=== PATIENT | male | born 1930 | race Caucasian/White ===

== ENCOUNTER 2016-12-10 20:54 | Inpatient (IN) | payer MEDICARE ==
[2016-12-10] MEDS ORDERED: SODIUM CHLORIDE 0.9% 1,000 ML IV STA (21:15)
[2016-12-10] MEDS ORDERED: DIPH,PERTUS(ACELL)TETVAC-LF 0.5 ML VIAL IM ONE (21:15)
[2016-12-10] MEDS ORDERED: SODIUM CHLORIDE 0.9% 500 ML IV STA (21:15)
[2016-12-10 21:49] LABS: Basophils # (A) 0.1 k/uL (0-0.2); Basophils % (A) 0 %; CH 30.8; Eosinophils # (A) 0.2 k/uL (0-0.7); Eosinophils % (A) 1 %; HCT 40.3 % (39.0-53.0); HDW 2.19; HGB 13.3 gm/dL (13.0-17.5); Luc # (Auto) 0.13; Luc % (Auto) 1; Lymphocytes # (A) 1.5 k/uL (1.0-4.8); Lymphocytes % (A) 13 %; MCH 31.9 pg (25.0-35.0); MCHC 32.9 g/dL (31.0-37.0); MCV 96.8 fL (80.0-100.0); Mean Platelet Volume 8.7; Monocytes # (A) 0.8 k/uL (0-1.0); Monocytes % (A) 7 %; Neutrophils # (A) 8.8 k/uL (1.3-7.7); Neutrophils % (A) 77 %; RBC 4.16 m/uL (4.30-5.90); RDW 12.6 % (11.5-15.5); WBC 11.4 k/uL (3.8-10.6)
--- NOTE | 2016-12-10 21:49 | XR ---
EXAMINATION TYPE: XR pelvis AP view DATE OF EXAM: 12/10/2016 COMPARISON: NONE HISTORY: Left hip pain TECHNIQUE: Single view FINDINGS: There is osteopenia. I see no displaced fracture. There is some mild deformity of the left femoral head that raises the possibility of a subcapital fracture. There appears to be a subtle horiz ontal impaction line on the lateral aspect of the femoral head. Oblique and lateral view would be pro bably confirmatory. Proximal right femur appears intact. IMPRESSION: I am suspicious of subcapital fracture of the left femur. Oblique and lateral views would be helpful for further evaluation if clinically indicated.
--- NOTE | 2016-12-10 21:52 | XR ---
EXAMINATION TYPE: XR chest 1V portable DATE OF EXAM: 12/10/2016 COMPARISON: 03/22/2016 HISTORY: Chest pain TECHNIQUE: Single frontal view of the chest is obtained. FINDINGS: There is no heart failure. Thoracic aorta is atheromatous. 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 There is blunting of right costophrenic angle. There is increa sed density over the anterior left seventh rib consistent with healing fracture. 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 Descendin g thoracic aortic aneurysm without change. No heart failure. No pneumothorax. No acute rib fracture s een.
[2016-12-10 21:59] LABS: ALT 36 U/L (21-72); AST 32 U/L (17-59); Alkaline Phosphatase 85 U/L (38-126); Anion Gap 10 mmol/L; Blood Urea Nitrogen 37 mg/dL (9-20); Calcium 8.6 mg/dL (8.4-10.2); Carbon Dioxide 23 mmol/L (22-30); Chloride 104 mmol/L (98-107); Creatine Kinase 89 U/L (55-170); Glucose 121 mg/dL (74-99); Non-African American GFR(MDRD) 53 (>60 ml/min/1.73 sqM); Potassium 5.7 mmol/L (3.5-5.1); Sodium 137 mmol/L (137-145); Total Bilirubin 0.6 mg/dL (0.2-1.3); Total Protein 5.9 g/dL (6.3-8.2)
[2016-12-10 22:02] LABS: INR 1.3 (<1.2); Prothrombin Time 12.6 sec (9.0-12.0)
[2016-12-10 22:17] LABS: Appearance,Urine Clear (Clear); Bilirubin,Urine Negative (Negative); Glucose,Urine (UA) Negative (Negative); Ketones,Urine Negative (Negative); Leukocyte Esterase,Urine Negative (Negative); Nitrite,Urine Negative (Negative); PH, Urine 5.5 (5.0-8.0); Protein,Urine Negative (Negative); UA Billing (MACRO vs. MICRO) CHEM; Urobilinogen,Urine <2.0 mg/dL (<2.0)
[2016-12-10 22:18] LABS: Creatine Kinase 86 U/L (55-170)
--- NOTE | 2016-12-10 22:27 | CT ---
EXAM: CT Head Without Intravenous Contrast CLINICAL HISTORY: Reason: trauma TECHNIQUE: Axial computed tomography images of the head/brain without intravenous contrast. CTDI is 57.40 mGy and DLP is 994.40 mGy-cm. This CT exam was performed using one or more of the following dose reduction techniques: automated exposure control, adjustment of the mA and/or kV according to patient size, and/or use of iterative reconstruction technique. COMPARISON: 01/08/16 FINDINGS: Brain: Periventricular white matter hypodensities indicating chronic small vessel ischemic changes. Old lacunar infarct in the right basal ganglia. No hemorrhage. Ventricles: Unremarkable. No ventriculomegaly. Bones/joints: Unremarkable. No acute fracture. Soft tissues: Unremarkable. Vasculature: Atherosclerotic vascular calcifications of the internal carotid arteries and vertebral arteries bilaterally. Sinuses: Unremarkable as visualized. No acute sinusitis. Mastoid air cells: Unremarkable as visualized. No mastoid effusion. Other findings: Generalized atrophy. IMPRESSION: No acute findings. Generalized atrophy and chronic small vessel ischemic changes noted. EXAM: CT Cervical Spine Without Intravenous Contrast CLINICAL HISTORY: Reason: trauma TECHNIQUE: Axial computed tomography images of the cervical spine without intravenous contrast. CTDI is 15.00 mGy and DLP is 293.50 mGy-cm. This CT exam was performed using one or more of the following dose reduction techniques: automated exposure control, adjustment of the mA and/or kV according to patient size, and/or use of iterative reconstruction technique. COMPARISON: No relevant prior studies available. FINDINGS: Vertebrae: 3 mm anterior subluxation of C7 on T1. Advanced bilateral facet degenerative changes noted at C7-T1. No acute fracture. Discs/spinal canal/neural foramina: Degenerative disc calcification noted at C2-3. Disc height loss with posterior disc spur complex seen at C3-4, C4-5, C5-6, and C6-7. Facet arthrosis seen bilaterally at C3-4, C4- 5, C5-6, and C6-7. Facet fusion bilaterally at C2-3. Soft tissues: Unremarkable. Lung apices: Emphysematous changes. IMPRESSION: No acute findings. Multilevel spondylotic changes as above.
[2016-12-10] MEDS ORDERED: MORPHINE SULFATE 4 MG/ML SYRINGE IVP STA (22:28)
[2016-12-10 22:30] LABS: Creatine Kinase MB 1.1 ng/mL (0.0-2.4); Troponin I <0.012 ng/mL (0.000-0.034)
[2016-12-11] MEDS ORDERED: NALOXONE 0.4 MG/ML 1 ML VIAL IV PRN (00:12)
[2016-12-11] MEDS ORDERED: ONDANSETRON 4 MG/2 ML VIAL IVP PRN (00:12)
[2016-12-11] MEDS ORDERED: ACETAMINOPHEN TAB 325 MG TAB PO PRN (00:12)
--- NOTE | 2016-12-11 00:24 | ED ---
General Adult HPI - General Chief complaint: Weakness Stated complaint: Falls Time Seen by Provider: 12/10/16 21:06 Source: patient, family, EMS, RN notes reviewed Mode of arrival: EMS Limitations: physical limitation - History of Present Illness Initial comments: 85-year-old male presents with chief complaint fall. Patient had 2 falls in the past 24 hours. He was found by his daughter this morning after falling in his closet. She does believe he was there all night. He does have beginning signs of dementia. Additional past medical history of hypertension and atrial fibrillation currently on Xarelto. Patient had some difficulty in relating after the initial fall, and this fell again this evening around 6 PM. This was mechanical in nature. He did hit the left side of his head, uncertain if there was loss of consciousness or not. Patient denied any chest pain or shortness of breath preceding the fall. Currently denies fever, denies abdominal pain. Denies nausea vomiting or diarrhea. - Related Data Home Medications Medication Instructions Recorded Confirmed Lisinopril [Prinivil] 10 mg PO DAILY 12/20/14 12/10/16 Simvastatin [Zocor] 40 mg PO DAILY 12/20/14 12/10/16 amLODIPine [Norvasc] 10 mg PO DAILY 12/20/14 12/10/16 Apixaban [Eliquis] 2.5 mg PO DAILY 12/10/16 12/10/16 Metoprolol Tartrate [Lopressor] 25 mg PO DAILY 12/10/16 12/10/16 Previous Rx's Medication Instructions Recorded Aspirin 81 mg PO DAILY #30 chew 01/14/16 Allergies Allergy/AdvReac Type Severity Reaction Status Date / Time vitamin B AdvReac Rash/Hives Uncoded 12/10/16 20:55 Review of Systems ROS Statement: Those systems with pertinent positive or pertinent negative responses have been documented in the HPI. ROS Other: All systems not noted in ROS Statement are negative. Past Medical History Past Medical History: Atrial Fibrillation, Dementia, Hyperlipidemia, Hypertension, Myocardial Infarction ([place]) Last Myocardial Infarction Date:: 20+ years ago History of Any Multi-Drug Resistant Organisms: None Reported Additional Past Surgical History / Comment(s): lobectomy, anuerysm with stent ( abdomen) Past Psychological History: No Psychological Hx Reported Smoking Status: Former smoker Past Alcohol Use History: Daily Past Drug Use History: None Reported - Past Family History Father History Unknown: Yes Family Medical History: Congestive Heart Failure (CHF), Myocardial Infarction ( [place]) Brother(s) History Unknown: Yes Family Medical History: Congestive Heart Failure (CHF), Myocardial Infarction ( [place]) General Exam Limitations: physical limitation General appearance: alert, in no apparent distress Head exam: Present: normocephalic, other (Abrasion and ecchymosis over the left lateral orbit, there is very superficial laceration which is not require repair. ) Eye exam: Present: normal appearance, PERRL, EOMI ENT exam: Present: mucous membranes dry Neck exam: Present: normal inspection, full ROM. Absent: tenderness, meningismus Respiratory exam: Present: normal lung sounds bilaterally. Absent: respiratory distress, wheezes Cardiovascular Exam: Present: regular rate, irregular rhythm GI/Abdominal exam: Present: soft. Absent: distended, tenderness, guarding Extremities exam: Present: normal inspection, normal capillary refill, other ( Patient has left hip pain with rotation. Alignment and length are Normal). Absent: pedal edema Back exam: Present: normal inspection, full ROM Neurological exam: Present: alert, oriented X3, CN II-XII intact. Absent: motor sensory deficit Psychiatric exam: Present: normal affect, normal mood Skin exam: Present: warm, dry. Absent: cyanosis, diaphoretic Course Vital Signs 12/10/16 12/10/16 20:55 22:22 Temperature 98 F Pulse Rate 91 90 Respiratory 18 16 Rate Blood Pressure 133/76 148/65 O2 Sat by Pulse 97 99 Oximetry - Reevaluation(s) Reevaluation #1: 12/11/16 00:19 Patient and family are updated on laboratory results as well as x-ray. EKG Findings - EKG Comments: EKG Findings:: With a ventricular rate of 85, there is a right bundle branch block, QRS duration 124, QTC 461, no signs of ischemia Medical Decision Making - Medical Decision Making 85-year-old male presenting status post fall. Patient did have head trauma with possible loss consciousness. He is on Xarelto. Patient is complaining only of left hip pain. No other injuries noted. CT of the head and C-spine is obtained and negative for acute hemorrhage, negative for fracture subluxation cervical spine. Chest x-ray shows no acute process. X-ray of the pelvis does show a left subcapital femoral neck fracture. This is consistent with his pain and exam. Laboratory studies reveal hemoglobin 13.3, INR 1.3, mild hyperkalemia at 5.7, although her creatinine is elevated at 1.28 related to dehydration over the past 24 hours. Lactic acid is mildly elevated at 2.7. Patient does receive IV fluid bolus and is placed on normal saline. Case is discussed with orthopedic surgery Dr. Sutton. Patient will be admitted to orthopedics with medicine on consult for medical clearance. Diagnosis: Left femoral neck fracture, dehydration, acute kidney injury, lactic acidosis - Lab Data Result diagrams: 12/10/16 21:32 12/10/16 21:32 Lab Results 12/10/16 12/10/16 12/10/16 Range/Units 21:32 21:32 21:32 WBC 11.4 H (3.8-10.6) k/uL RBC 4.16 L (4.30-5.90) m/uL Hgb 13.3 (13.0-17.5) gm/dL Hct 40.3 (39.0-53.0) % MCV 96.8 (80.0-100.0) fL MCH 31.9 (25.0-35.0) pg MCHC 32.9 (31.0-37.0) g/dL RDW 12.6 (11.5-15.5) % Plt Count 143 L (150-450) k/uL Neutrophils % 77 % Lymphocytes % 13 % Monocytes % 7 % Eosinophils % 1 % Basophils % 0 % Neutrophils # 8.8 H (1.3-7.7) k/uL Lymphocytes # 1.5 (1.0-4.8) k/uL Monocytes # 0.8 (0-1.0) k/uL Eosinophils # 0.2 (0-0.7) k/uL Basophils # 0.1 (0-0.2) k/uL PT (9.0-12.0) sec INR (<1.2) APTT (22.0-30.0) sec Sodium 137 (137-145) mmol/L Potassium 5.7 H (3.5-5.1) mmol/L Chloride 104 (98-107) mmol/L Carbon Dioxide 23 (22-30) mmol/L Anion Gap 10 mmol/L BUN 37 H (9-20) mg/dL Creatinine 1.28 H (0.66-1.25) mg/dL Est GFR (MDRD) Af Amer >60 (>60 ml/min/1.73 sqM) Est GFR (MDRD) Non-Af 53 (>60 ml/min/1.73 sqM) Glucose 121 H (74-99) mg/dL Plasma Lactic Acid [place] (0.7-2.0) mmol/L Calcium 8.6 (8.4-10.2) mg/dL Magnesium 2.0 (1.6-2.3) mg/dL Total Bilirubin 0.6 (0.2-1.3) mg/dL AST 32 (17-59) U/L ALT 36 (21-72) U/L Alkaline Phosphatase 85 (38-126) U/L Creatine Kinase 89 (55-170) U/L Total Creatine Kinase 86 (55-170) U/L CK-MB (CK-2) 1.1 (0.0-2.4) ng/mL CK-MB (CK-2) Rel Index 1.3 Troponin I <0.012 (0.000-0.034) ng/mL Total Protein 5.9 L (6.3-8.2) g/dL Albumin 3.3 L (3.5-5.0) g/dL Urine Color Urine Appearance (Clear) Urine pH (5.0-8.0) Ur Specific [place] (1.001-1.035) Urine Protein (Negative) Urine Glucose (UA) (Negative) Urine Ketones (Negative) Urine Blood (Negative) Urine Nitrite (Negative) Urine Bilirubin (Negative) Urine Urobilinogen (<2.0) mg/dL Ur Leukocyte Esterase (Negative) 12/10/16 12/10/16 12/10/16 Range/Units 21:32 21:32 22:03 WBC (3.8-10.6) k/uL RBC (4.30-5.90) m/uL Hgb (13.0-17.5) gm/dL Hct (39.0-53.0) % MCV (80.0-100.0) fL MCH (25.0-35.0) pg MCHC (31.0-37.0) g/dL RDW (11.5-15.5) % Plt Count (150-450) k/uL Neutrophils % % Lymphocytes % % Monocytes % % Eosinophils % % Basophils % % Neutrophils # (1.3-7.7) k/uL Lymphocytes # (1.0-4.8) k/uL Monocytes # (0-1.0) k/uL Eosinophils # (0-0.7) k/uL Basophils # (0-0.2) k/uL PT 12.6 H (9.0-12.0) sec INR 1.3 H (<1.2) APTT 25.0 (22.0-30.0) sec Sodium (137-145) mmol/L Potassium (3.5-5.1) mmol/L Chloride (98-107) mmol/L Carbon Dioxide (22-30) mmol/L Anion Gap mmol/L BUN (9-20) mg/dL Creatinine (0.66-1.25) mg/dL Est GFR (MDRD) Af Amer (>60 ml/min/1.73 sqM) Est GFR (MDRD) Non-Af (>60 ml/min/1.73 sqM) Glucose (74-99) mg/dL Plasma Lactic Acid [place] 2.7 H* (0.7-2.0) mmol/L Calcium (8.4-10.2) mg/dL Magnesium (1.6-2.3) mg/dL Total Bilirubin (0.2-1.3) mg/dL AST (17-59) U/L ALT (21-72) U/L Alkaline Phosphatase (38-126) U/L Creatine Kinase (55-170) U/L Total Creatine Kinase (55-170) U/L CK-MB (CK-2) (0.0-2.4) ng/mL CK-MB (CK-2) Rel Index Troponin I (0.000-0.034) ng/mL Total Protein (6.3-8.2) g/dL Albumin (3.5-5.0) g/dL Urine Color Yellow Urine Appearance Clear (Clear) Urine pH 5.5 (5.0-8.0) Ur Specific [place] 1.020 (1.001-1.035) Urine Protein Negative (Negative) Urine Glucose (UA) Negative (Negative) Urine Ketones Negative (Negative) Urine Blood Negative (Negative) Urine Nitrite Negative (Negative) Urine Bilirubin Negative (Negative) Urine Urobilinogen <2.0 (<2.0) mg/dL Ur Leukocyte Esterase Negative (Negative) Critical Care Time Critical Care Time: Yes Total Critical Care Time: 35 (Vital with head injury on Xarelto) Disposition Clinical Impression: Fracture of femoral neck, left, Acute renal failure Disposition: ADMITTED IP TO THIS [facility] Condition: Stable Referrals: Salazar Hsu MD [Primary Care Provider] - 1-2 days Decision to Admit Reason: Admit from EC Decision Date: 12/10/16 Decision Time: 23:30
[2016-12-11] MEDS: SODIUM CHLORIDE 0.9% 1,000 ML IV SCH (01:33)
[2016-12-11] MEDS: MORPHINE SULFATE 4 MG/ML SYRINGE IV PRN ×3 (01:33→20:56)
--- NOTE | 2016-12-11 10:19 | P.HPOR ---
History of Present Illness H&P Date: 12/11/16 Chief Complaint: Left hip pain Patient presented to the emergency department last evening 12/10/2016 with left hip pain that developed after a fall. He is a pleasant 85-year-old male was seen at bedside this morning. He states he lives alone at [facility]. He had stumbled and fell to his left side. He has had pain in the left hip and thigh area with lifting his left leg. He denies any radicular symptoms including numbness, tingling or overt weakness. He has had no loss of bowel or bladder control. He has no other complaints. Review of Systems All systems: negative Constitutional: Denies chills, Denies fever Eyes: denies blurred vision, denies pain Ears, nose, mouth and throat: Denies headache, Denies sore throat Cardiovascular: Denies chest pain, Denies shortness of breath Respiratory: Denies cough Gastrointestinal: Denies abdominal pain, Denies diarrhea, Denies nausea, Denies vomiting Musculoskeletal: Denies myalgias Integumentary: Denies pruritus, Denies rash Neurological: Denies numbness, Denies weakness Psychiatric: Denies anxiety, Denies depression Endocrine: Denies fatigue, Denies weight change Past Medical History Past Medical History: Atrial Fibrillation, Asthma, Heart Failure, COPD, CVA/TIA , Dementia, GERD/Reflux, Hyperlipidemia, Hypertension, Myocardial Infarction ([place] ), Osteoarthritis ([place]), Pneumonia, Prostate Disorder Additional Past Medical History / Comment(s): Falls, abdominal aortic aneurysm with sleeve, R lobectomy (1) for benign mass, TIA, chronic CHF, lumbar spine compression fracture, BPH, sinus problems, constipation with last BM 2-3 days ago, R leg fracture as a child. Last Myocardial Infarction Date:: 1987 about History of Any Multi-Drug Resistant Organisms: None Reported Past Surgical History: Heart Catheterization With Stent Additional Past Surgical History / Comment(s): R lung lobectomy (1/), abdominal aortic aneurysm surgery x 2 and has a sleeve, PCI with stent, colonoscopies with benign polypectomies, R eye cataract removal. Past Anesthesia/Blood Transfusion Reactions: No Reported Reaction Date of Last Stent Placement:: 1987? Smoking Status: Former smoker - Past Family History Father History Unknown: Yes Family Medical History: Congestive Heart Failure (CHF), Myocardial Infarction ( [place]) Brother(s) History Unknown: Yes Family Medical History: Congestive Heart Failure (CHF), Myocardial Infarction ( [place]) Medications and Allergies Home Medications Medication Instructions Recorded Confirmed Type Lisinopril [Prinivil] 10 mg PO DAILY 12/20/14 12/10/16 History Simvastatin [Zocor] 40 mg PO DAILY 12/20/14 12/10/16 History amLODIPine [Norvasc] 10 mg PO DAILY 12/20/14 12/10/16 History Apixaban [Eliquis] 2.5 mg PO DAILY 12/10/16 12/10/16 History Metoprolol Tartrate [Lopressor] 25 mg PO DAILY 12/10/16 12/10/16 History Allergies Allergy/AdvReac Type Severity Reaction Status Date / Time vitamin B AdvReac Rash/Hives Uncoded 12/10/16 20:55 Physical Examination Inspection left lower extremity is benign. There is no open wounds or lacerations. There is no erythema or edema. Range of motion of the left hip is not tested due to possible fracture. Neurovascular status intact with the left lower extremity with motor and sensation. Calf is soft and nontender. 2+ dorsalis pedis pulses are present as well as less than 2 second cap refill. Results One view x-ray of the pelvis shows questionable left subcapital femoral neck fracture. Osteoarthritis is seen as expected given age. No other fractures or dislocations. - Labs Labs: Abnormal Lab Results - Last 24 Hours (Table) 12/10/16 12/10/16 12/10/16 Range/Units 21:32 21:32 21:32 WBC 11.4 H (3.8-10.6) k/uL RBC 4.16 L (4.30-5.90) m/uL Plt Count 143 L (150-450) k/uL Neutrophils # 8.8 H (1.3-7.7) k/uL PT (9.0-12.0) sec INR (<1.2) Potassium 5.7 H (3.5-5.1) mmol/L BUN 37 H (9-20) mg/dL Creatinine 1.28 H (0.66-1.25) mg/dL Glucose 121 H (74-99) mg/dL Plasma Lactic Acid [place] 2.7 H* (0.7-2.0) mmol/L Total Protein 5.9 L (6.3-8.2) g/dL Albumin 3.3 L (3.5-5.0) g/dL 12/10/16 Range/Units 21:32 WBC (3.8-10.6) k/uL RBC (4.30-5.90) m/uL Plt Count (150-450) k/uL Neutrophils # (1.3-7.7) k/uL PT 12.6 H (9.0-12.0) sec INR 1.3 H (<1.2) Potassium (3.5-5.1) mmol/L BUN (9-20) mg/dL Creatinine (0.66-1.25) mg/dL Glucose (74-99) mg/dL Plasma Lactic Acid [place] (0.7-2.0) mmol/L Total Protein (6.3-8.2) g/dL Albumin (3.5-5.0) g/dL H & H 12/10/16 Range/Units 21:32 Hgb 13.3 (13.0-17.5) gm/dL Hct 40.3 (39.0-53.0) % Coagulation 12/10/16 Range/Units 21:32 INR 1.3 H (<1.2) Result Diagrams: 12/10/16 21:32 12/10/16 21:32 Assessment and Plan (1) Fracture of femoral neck, left Narrative/Plan: We will obtain a CT of the left hip to further confirm possible left femoral neck fracture. Should the CT confirm fracture we'll likely proceed with surgical intervention in the next day or so pending medical clearance. Status: Acute Time with Patient: Less than 30
--- NOTE | 2016-12-11 12:09 | CT ---
EXAMINATION TYPE: CT hip LT wo con DATE OF EXAM: 12/11/2016 COMPARISON: NONE HISTORY: Recent fall, Lt hip pain CT DLP: 232.3 mGycm Automated exposure control for dose reduction was used. Axial images 3 mm thick sections. Three-D reconstructed separately on the ME[employer] Real-Time computer by the tech nologist. Sagittal and Coronal reconstructed images were obtained. FINDINGS: There is a subcapital fracture left hip.. This appears to have impaction of the femoral neck of the f emoral head. Femoral head articulates with the acetabulum. Vascular calcification is noted. Muscle de nsity appears normal. IMPRESSION: 1. IMPACTED SUBCAPITAL FRACTURE LEFT FEMORAL NECK. 2. REPORT WAS CALLED TO THE FLOOR BY DR. BUCHANAN BY TELEPHONE AT THE TIME OF INTERPRETATION.
[2016-12-11] MEDS: ENOXAPARIN 60 MG/0.6 ML SYRINGE SQ SCH ×2 (12:43→20:56)
--- NOTE | 2016-12-11 13:06 | P.CONS ---
History of Present Illness - Reason for Consult Consult date: 12/11/16 Medical clearance - Chief Complaint Fall - History of Present Illness This is a 85-year-old gentleman who currently lives in [facility] facility was going to the hospital after sustaining multiple falls in the recent times. Patient was noted to have a traumatic injury to the left orbit laterally. Patient was also noted to have some pain in his pelvis appears that the patient is a left femoral neck fracture Patient is currently on anticoagulation for atrial fibrillation for secondary prevention of strokes At this time patient states that his main complaint is pain in his left lower extremity. Over the last few months patient states that his balance has worsened and hence has had sustained multiple falls ekg do show the patient to be in atrial fibrillation. last ejection fraction is 35-40%. Review of Systems All systems: negative (Noted in HPI) Past Medical History Past Medical History: Atrial Fibrillation, Asthma, Heart Failure, COPD, CVA/TIA , Dementia, GERD/Reflux, Hyperlipidemia, Hypertension, Myocardial Infarction ([place] ), Osteoarthritis (OA), Pneumonia, Prostate Disorder Additional Past Medical History / Comment(s): Falls, abdominal aortic aneurysm with sleeve, R lobectomy (1/) for benign mass, TIA, chronic CHF, lumbar spine compression fracture, BPH, sinus problems, constipation with last BM 2-3 days ago, R leg fracture as a child. Last Myocardial Infarction Date:: 1987 about History of Any Multi-Drug Resistant Organisms: None Reported Past Surgical History: Heart Catheterization With Stent Additional Past Surgical History / Comment(s): R lung lobectomy (04/23), abdominal aortic aneurysm surgery x 2 and has a sleeve, PCI with stent, colonoscopies with benign polypectomies, R eye cataract removal. Past Anesthesia/Blood Transfusion Reactions: No Reported Reaction Date of Last Stent Placement:: 1987? Smoking Status: Former smoker - Past Family History Father History Unknown: Yes Family Medical History: Congestive Heart Failure (CHF), Myocardial Infarction ( [place]) Brother(s) History Unknown: Yes Family Medical History: Congestive Heart Failure (CHF), Myocardial Infarction ( [place]) Medications and Allergies Home Medications Medication Instructions Recorded Confirmed Type Lisinopril [Prinivil] 10 mg PO DAILY 12/20/14 12/10/16 History Simvastatin [Zocor] 40 mg PO DAILY 12/20/14 12/10/16 History amLODIPine [Norvasc] 10 mg PO DAILY 12/20/14 12/10/16 History Apixaban [Eliquis] 2.5 mg PO DAILY 12/10/16 12/10/16 History Metoprolol Tartrate [Lopressor] 25 mg PO DAILY 12/10/16 12/10/16 History Allergies Allergy/AdvReac Type Severity Reaction Status Date / Time vitamin B AdvReac Rash/Hives Uncoded 12/10/16 20:55 Physical Exam Vitals: Vital Signs Temp Pulse Pulse Resp BP BP Pulse Ox 12/11/16 08:00 110 H 12/11/16 07:00 98.2 F 111 H 18 112/75 92 L 12/11/16 01:32 98.0 F 102 H 17 138/82 98 12/11/16 00:52 97.6 F 87 16 126/58 98 12/10/16 22:22 90 16 148/65 99 12/10/16 20:55 98 F 91 18 133/76 97 Intake and Output 12/10/16 12/11/16 12/11/16 22:59 06:59 14:59 Intake Total 300 Balance 300 Intake: Intake, IV Titration 300 Amount Sodium Chloride 0.9% 1, 300 000 ml @ 75 mls/hr IV . [id number] [facility] Rx#:[id number] Other: Voiding Method Urinal Weight 61.235 kg Gen. appearance alert oriented times it does not appear to be in distress neck is supple. Heart S1-S2 heard no murmurs appreciated appears to be irregular From lungs diminished breath sounds no rhonchi wheezing or crackles Abdomen soft nontender organomegaly There is tenderness palpated on any motion of pelvis left lower extremity reproducibility of tenderness with the slight movement Neuro no focal deficits apart from the pain Results CBC & Chem 7: 12/10/16 21:32 12/10/16 21:32 Labs: Abnormal Lab Results - Last 24 Hours (Table) 12/10/16 12/10/16 12/10/16 Range/Units 21:32 21:32 21:32 WBC 11.4 H (3.8-10.6) k/uL RBC 4.16 L (4.30-5.90) m/uL Plt Count 143 L (150-450) k/uL Neutrophils # 8.8 H (1.3-7.7) k/uL PT (9.0-12.0) sec INR (<1.2) Potassium 5.7 H (3.5-5.1) mmol/L BUN 37 H (9-20) mg/dL Creatinine 1.28 H (0.66-1.25) mg/dL Glucose 121 H (74-99) mg/dL Plasma Lactic Acid [place] 2.7 H* (0.7-2.0) mmol/L Total Protein 5.9 L (6.3-8.2) g/dL Albumin 3.3 L (3.5-5.0) g/dL 12/10/16 Range/Units 21:32 WBC (3.8-10.6) k/uL RBC (4.30-5.90) m/uL Plt Count (150-450) k/uL Neutrophils # (1.3-7.7) k/uL PT 12.6 H (9.0-12.0) sec INR 1.3 H (<1.2) Potassium (3.5-5.1) mmol/L BUN (9-20) mg/dL Creatinine (0.66-1.25) mg/dL Glucose (74-99) mg/dL Plasma Lactic Acid [place] (0.7-2.0) mmol/L Total Protein (6.3-8.2) g/dL Albumin (3.5-5.0) g/dL Assessment and Plan Plan: #1 fall causing a left femoral neck fracture #2 chronic atrial fibrillation #3 history of essential hypertension #4 dyslipidemia 4 lactic acidosis #Dehydration Plan Patient has sustained multiple falls over the last few months. Long-term anticoagulation is likely more risky in this patient population Did discuss this with the patient patient should be on aspirin 325 mg however if patient is to undergo an orthopedic surgery patient should have anticoagulation for at least 4 weeks thereafter should be switched over to aspirin 325 this is for DVT prevention Due to the emergent nature of the surgery no further workup is needed patient does understand the risks of the surgery in regards to cardiovascular aspect patient will be clear given he understands the risks and the nature of his condition.
[2016-12-12] MEDS: SODIUM CHLORIDE 0.9% 1,000 ML IV SCH ×3 (03:52→20:56)
[2016-12-12 07:38] LABS: Basophils % (A) 0 %; CH 30.9; CHCM 30.9; Eosinophils # (A) 0.8 k/uL (0-0.7); Eosinophils % (A) 8 %; HCT 37.7 % (39.0-53.0); HDW 2.12; HGB 11.9 gm/dL (13.0-17.5); Hypochromasia Slight; Luc # (Auto) 0.16; Luc % (Auto) 1; Lymphocytes # (A) 1.8 k/uL (1.0-4.8); Lymphocytes % (A) 17 %; MCH 31.7 pg (25.0-35.0); MCHC 31.6 g/dL (31.0-37.0); MCV 100.4 fL (80.0-100.0); Mean Platelet Volume 8.7; Monocytes # (A) 0.8 k/uL (0-1.0); Monocytes % (A) 8 %; Neutrophils # (A) 7.2 k/uL (1.3-7.7); Neutrophils % (A) 66 %; RBC 3.76 m/uL (4.30-5.90); RDW 12.8 % (11.5-15.5); WBC 10.8 k/uL (3.8-10.6); WBC (Perox) 11.31
[2016-12-12 08:03] LABS: ALT 30 U/L (21-72); AST 28 U/L (17-59); Alkaline Phosphatase 78 U/L (38-126); Anion Gap 6 mmol/L; Blood Urea Nitrogen 29 mg/dL (9-20); Calcium 8.2 mg/dL (8.4-10.2); Carbon Dioxide 22 mmol/L (22-30); Chloride 111 mmol/L (98-107); Glucose 77 mg/dL (74-99); Non-African American GFR(MDRD) 57 (>60 ml/min/1.73 sqM); Potassium 5.1 mmol/L (3.5-5.1); Sodium 139 mmol/L (137-145); Total Bilirubin 0.8 mg/dL (0.2-1.3); Total Protein 5.2 g/dL (6.3-8.2)
[2016-12-12] MEDS: METOPROLOL TARTRATE 25 MG TAB PO SCH (09:08)
[2016-12-12] MEDS: amLODIPine 10 MG TAB PO SCH (09:10)
[2016-12-12] MEDS: ENOXAPARIN 60 MG/0.6 ML SYRINGE SQ SCH ×2 (09:10→20:55)
--- NOTE | 2016-12-12 12:16 | P.PN ---
Subjective The Patient in Good Humor with Family at Bedside. Complaining of Left Hip Pain. Patient Has Been Cleared per Hospitalist for Hip Surgery Objective - Vital Signs Vital signs: Vital Signs Temp 97.2 F L 12/12/16 08:00 Pulse 68 12/12/16 08:00 Resp 18 12/12/16 08:00 BP 138/65 12/12/16 08:00 Pulse Ox 95 12/12/16 08:00 Intake & Output 12/11/16 12/12/16 12/12/16 18:59 06:59 18:59 Intake Total 600 1025 Output Total 600 Balance 600 425 Intake: IV 600 225 Sodium Chloride 0.9% 1, 600 225 000 ml @ 75 mls/hr IV . [id number] [facility] Rx#:[id number] Intake, IV Titration 600 Amount Sodium Chloride 0.9% 1, 600 000 ml @ 75 mls/hr IV . [id number] [facility] Rx#:[id number] Oral 200 Output: Urine 600 Other: Voiding Method Urinal Urinal Incontinent # Voids 2 - Constitutional General appearance: Present: mild distress - EENT Eyes: Present: PERRLA Ears: bilateral: normal - Neck Neck: Present: normal ROM - Respiratory Respiratory: bilateral: CTA - Cardiovascular Rhythm: irregularly irregular - Gastrointestinal General gastrointestinal: Present: soft - Neurologic Neurologic: Present: CNII-XII intact - Musculoskeletal Musculoskeletal: Present: generalized weakness - Psychiatric Psychiatric: Present: A&O x's 3, appropriate affect, intact judgment & insight - Labs CBC & Chem 7: 12/12/16 06:58 12/12/16 06:58 Labs: Abnormal Lab Results - Last 24 Hours (Table) 12/12/16 12/12/16 Range/Units 06:58 06:58 WBC 10.8 H (3.8-10.6) k/uL RBC 3.76 L (4.30-5.90) m/uL Hgb 11.9 L (13.0-17.5) gm/dL Hct 37.7 L (39.0-53.0) % MCV 100.4 H (80.0-100.0) fL Plt Count 141 L (150-450) k/uL Eosinophils # 0.8 H (0-0.7) k/uL Chloride 111 H (98-107) mmol/L BUN 29 H (9-20) mg/dL Calcium 8.2 L (8.4-10.2) mg/dL Total Protein 5.2 L (6.3-8.2) g/dL Albumin 2.6 L (3.5-5.0) g/dL Assessment and Plan Plan: Assessment Fall resulting in left femoral neck fracture Chronic atrial fibrillation History of coronary disease with stents Chronic congestive heart failure ejection fraction 35-40% History of hypertension Dyslipidemia dehydration Plan Surgical repair of left hip today
[2016-12-12] MEDS: MORPHINE SULFATE 4 MG/ML SYRINGE IV PRN (12:33)
[2016-12-12 14:12] VITALS: BMI 21.1
[2016-12-12] MEDS ORDERED: IV FLUID CONTINUATION 1,000 ML IV ONE (15:59)
[2016-12-12] MEDS ORDERED: MAGNESIUM HYDROXIDE 2,400 MG/10 ML CUP PO PRN (16:41)
[2016-12-12] MEDS ORDERED: TEMAZEPAM 15 MG CAP PO PRN (16:41)
[2016-12-12] MEDS ORDERED: HYDROmorphone 1 MG/ML 1 ML SYRINGE IVP PRN ×3 (16:41)
[2016-12-12] MEDS ORDERED: hydrOXYzine PAMOATE 25 MG CAP PO PRN (16:41)
[2016-12-12] MEDS ORDERED: DIAZEPAM 5 MG TAB PO PRN (16:41)
[2016-12-12] MEDS ORDERED: KETAMINE 10 MG/ML 20 ML VIAL ONE (16:50)
[2016-12-12] MEDS ORDERED: MIDAZOLAM 2 MG/2 ML VIAL ONE (16:50)
[2016-12-12] MEDS ORDERED: PHENYLEPHRINE-0.9% NACL SYG 1 MG/10 ML SYRINGE ONE (16:50)
[2016-12-12] MEDS: ceFAZolin 2 GM in SODIUM CHLORIDE 0.9% 100 ML IVPB SCH (17:14)
[2016-12-12] MEDS ORDERED: ceFAZolin 1,000 MG in SODIUM CHLORIDE 0.9% 1,000 ML IRRIGATION ONE (17:34)
--- NOTE | 2016-12-12 18:29 | XR ---
EXAMINATION TYPE: XR Hip Limited LT DATE OF EXAM: 12/12/2016 CLINICAL HISTORY: Left hip pain and osteoarthritis. TECHNIQUE: Single AP portable view of left hip is obtained immediately postoperatively. COMPARISON: None. FINDINGS: Three cephalomedullary screws from left hip arthroplasty is seen and appears satisfactory i n alignment and position. There is evidence of recent surgery with subcutaneous gas noted laterally. 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 IMPRESSION: Metallic hardware from left hip arthroplasty is satisfactory in position.
--- NOTE | 2016-12-12 19:30 | FL ---
EXAMINATION TYPE: FL guidance operating room DATE OF EXAM: 12/12/2016 CLINICAL HISTORY: ORIF left hip. TECHNIQUE: Fluoroscopy. COMPARISON: None. FINDINGS/IMPRESSION: Fluoroscopic guidance was provided during procedure performed by Dr. Sutton. A total of 51 seconds of fluoroscopic time was utilized during the procedure and 2 spot images was acq uired.
[2016-12-12 19:34] LABS: Basophils # (A) 0.1 k/uL (0-0.2); Basophils % (A) 1 %; CH 31.6; Eosinophils # (A) 0.7 k/uL (0-0.7); Eosinophils % (A) 6 %; HCT 40.5 % (39.0-53.0); HDW 2.15; HGB 12.5 gm/dL (13.0-17.5); Hypochromasia Slight; Luc # (Auto) 0.19; Luc % (Auto) 2; Lymphocytes # (A) 1.7 k/uL (1.0-4.8); Lymphocytes % (A) 14 %; MCH 31.7 pg (25.0-35.0); MCHC 30.9 g/dL (31.0-37.0); MCV 102.7 fL (80.0-100.0); Macrocytosis Slight; Mean Platelet Volume 8.8; Monocytes # (A) 1.1 k/uL (0-1.0); Monocytes % (A) 9 %; Neutrophils % (A) 69 %; RBC 3.95 m/uL (4.30-5.90); RDW 13.4 % (11.5-15.5); WBC 11.7 k/uL (3.8-10.6); WBC (Perox) 12.62
--- NOTE | 2016-12-12 19:42 | XR ---
EXAMINATION TYPE: XR Hip Complete LT DATE OF EXAM: 12/12/2016 CLINICAL HISTORY: Left hip pain and osteoarthritis. TECHNIQUE: 2 paper films from intraoperative ORIF of the left hip were obtained. COMPARISON: None. FINDINGS/ IMPRESSION: Metallic hardware from left hip arthroplasty with three cephalomedullary fixation screws are seen and appears satisfactory in alignment and position.
[2016-12-12] MEDS: LACTATED RINGERS 1,000 ML IV SCH (20:56)
[2016-12-12] MEDS: ASPIRIN 325 MG TAB PO SCH (21:01)
[2016-12-12] MEDS: SENNOSIDES-DOCUSATE SODIUM 1 EACH TAB PO SCH (21:01)
[2016-12-12] MEDS: HYDROcodone/APAP 5-325MG 1 EACH TAB PO PRN (23:59)
[2016-12-13] MEDS: HYDROcodone/APAP 5-325MG 1 EACH TAB PO PRN ×3 (05:04→16:04)
[2016-12-13] MEDS: SODIUM CHLORIDE 0.9% 1,000 ML IV SCH ×2 (06:08→21:27)
[2016-12-13] MEDS: LACTATED RINGERS 1,000 ML IV SCH ×2 (06:09→21:35)
--- NOTE | 2016-12-13 09:14 | P.PN ---
Subjective Principal diagnosis: Left Hip Fracture Patient is pleasant 78-year-old male seen at bedside this morning. He is postop day 1 from closed reduction internal fixation of a left subcapital impacted femoral neck fracture. He's doing well with no new complaints. He has pain at surgical site as expected. His pain is controlled. He denies numbness or tingling. He denies calf pain, fever, chills, chest pain or shortness of breath. Objective - Vital Signs Vital signs: Vital Signs Temp 97.6 F 12/13/16 07:24 Pulse 84 12/13/16 07:24 Resp 18 12/13/16 07:24 BP 102/63 12/13/16 07:24 Pulse Ox 97 12/13/16 07:24 Intake & Output 12/12/16 12/13/16 12/13/16 18:59 06:59 18:59 Intake Total 896 1550 Output Total 1475 300 Balance -579 1250 Weight 61.235 kg Intake: IV 896 900 Sodium Chloride 0.9% 1, 600 900 000 ml @ 75 mls/hr IV . [id number] [facility] Rx#:[id number] Oral 0 650 Output: Urine 1450 300 Uretheral (Fields) 300 Estimated Blood Loss 25 Other: Voiding Method Urinal Indwelling Catheter Incontinent # Voids 2 - Exam Inspection of the left lower extremity reveals a benign surgical wound. There is no active bleeding or drainage. Neurovascular status intact with motor and sensation at the left lower extremity. Calf is soft and nontender. 2+ dorsalis pedis pulse and less than 2 second cap refill is present. - Constitutional General appearance: Present: no acute distress - Psychiatric Psychiatric: Present: A&O x's 3, appropriate affect, intact judgment & insight - Labs CBC & Chem 7: 12/12/16 19:07 12/12/16 06:58 Labs: Abnormal Lab Results - Last 24 Hours (Table) 12/12/16 Range/Units 19:07 WBC 11.7 H (3.8-10.6) k/uL RBC 3.95 L (4.30-5.90) m/uL Hgb 12.5 L (13.0-17.5) gm/dL MCV 102.7 H (80.0-100.0) fL MCHC 30.9 L (31.0-37.0) g/dL Plt Count 137 L (150-450) k/uL Neutrophils # 8.0 H (1.3-7.7) k/uL Monocytes # 1.1 H (0-1.0) k/uL Assessment and Plan (1) Fracture of femoral neck, left Narrative/Plan: He'll continue with routine postop orthopedic protocol including pain management , wound care, physical therapy, DVT prophylaxis and medical management. Expect that he'll transfer to extended care facility in the next 1-2 days.. Status: Acute Time with Patient: Less than 30
[2016-12-13] MEDS: ENOXAPARIN 60 MG/0.6 ML SYRINGE SQ SCH ×2 (10:08→21:24)
[2016-12-13] MEDS: ASPIRIN 325 MG TAB PO SCH ×2 (10:08→21:23)
[2016-12-13] MEDS: METOPROLOL TARTRATE 25 MG TAB PO SCH (10:08)
[2016-12-13] MEDS: amLODIPine 10 MG TAB PO SCH (10:08)
[2016-12-13] MEDS: ceFAZolin 2 GM in SODIUM CHLORIDE 0.9% 100 ML IVPB SCH (10:11)
[2016-12-13] MEDS: MULTIVITAMINS, THERA 1 EACH TAB PO SCH (11:25)
--- NOTE | 2016-12-13 16:39 | OP ---
DATE OF PROCEDURE: 12/12/2016 PREOPERATIVE DIAGNOSIS: Left non-displaced valgus impacted femoral neck fracture. POSTOPERATIVE DIAGNOSIS: Left non-displaced valgus impacted femoral neck fracture. SURGERY: Closed reduction, percutaneous screw fixation for left non-displaced femoral neck fracture. SURGEON: Zion Sutton M.D. ROAD BUILDER: Tyler FINE ANESTHESIA: Spinal with sedation. ESTIMATED BLOOD LOSS: 25 mL DRAINS: None. COMPLICATIONS: None apparent. DISPOSITION: Post-Anesthesia Care Unit. INDICATIONS: Mr. Gallardo is a very pleasant 85-year-old male who lives independently. He fell in his house on the evening of 12/11/2016. He was brought to [facility] via ambulance. Workup including x-rays revealed a non- displaced left subcapital femoral neck fracture. He was admitted to pr. His primary care doctor, Dr. Hsu, was consulted for preoperative clearance. He has been cleared for surgery. He is an independent ambulator. He lives by himself. The decision was made to go forward with closed reduction, percutaneous screw fixation, for the femoral neck fracture. The risks of the procedure were discussed with him and his daughters in detail. These risks include but are not limited to risk of infection, nerve damage, bleeding, pain and a small risk of deep vein thrombosis which could lead to fatal pulmonary embolism. Further risks include possibility for failure of the fracture to heal, loosening of the hardware, both of which could require revision operation. All of Mr. Gallardo's and his daughters' questions were answered to their satisfaction. Appropriate informed consent was obtained. DESCRIPTION OF THE PROCEDURE: The patient was identified in the preoperative holding area. Surgical site was marked by both the patient and myself. He was given 2 grams of Ancef IV for prophylactic purposes. He was then transferred to the operative suite. He was placed supine on the operating room table. Spinal anesthetic was then administered and dosed per the anesthesia department without apparent complications. The patient was then placed on the fracture table, well padded in preparation for surgery. Great care was taken. Fluoroscopy was then brought in. The fracture remained non-displaced. Good fluoroscopic views were able to be obtained preoperatively. The patient's left lower extremity was then prepped and draped in the usual sterile fashion. Standard surgical pause was then undertaken to ensure that we were operating on the correct site and that appropriate preoperative antibiotics had been given. All staff in the room were in agreement and we proceeded. Fluoroscopy was brought in. A pin was placed on the anterior skin in line with the inferior screw. This allowed me to localize my incision on the lateral aspect of the thigh. An approximately 2 to 3 cm incision was then made. Dissection was carried sharply to the tensor facia. The tensor fascia was incised in line with the skin incision. The inferior pin was then placed under fluoroscopic guidance in the center of the femoral head along the inferior femoral neck. It was placed deep into the femoral head. Again this pin position was placed with fluoroscopic imaging. I then placed 2 more parallel pins, one superior and anterior along the anterior cortex of the femoral neck, and one superior and posterior along the posterior superior femoral neck. There were both also placed deep into the femoral head. The position was confirmed with fluoroscopic assistance. I then placed Elaine Magnafix 7.0 mm partially threaded cannulated screws with washers over the guide pins. All 3 of the screws had excellent purchase in bone. The pins were then removed. Final fluoroscopic images were taken. All 3 pins were parallel. They had a nice spread and were placed deep in the femoral head with excellent purchase in bone. This was confirmed on both A/P and lateral views. At this point in time, no further work was deemed necessary. The wound was thoroughly irrigated with sterile saline solution with antibiotic added. The tensor fascia was closed with #1 Vicryl in interrupted suture. The subcutaneous tissue was closed with 2-0 Vicryl interrupted suture and the skin was closed with stainless steel kang. Sterile compressive dressing was then applied. All sponge and needle counts were deemed correct prior to closure. The patient tolerated the procedure without apparent complication. He was transferred to the recovery room in stable condition. TRANG
--- NOTE | 2016-12-13 18:59 | P.PN ---
Subjective Patient resting comfortably in bed states pain is controlled. Patient is postop repair of left femoral neck fracture Objective - Vital Signs Vital signs: Vital Signs Temp 98.4 F 12/13/16 14:21 Pulse 78 12/13/16 16:18 Resp 18 12/13/16 16:18 BP 124/78 12/13/16 16:18 Pulse Ox 94 L 12/13/16 14:21 Intake & Output 12/12/16 12/13/16 12/13/16 18:59 06:59 18:59 Intake Total 896 1550 480 Output Total 1475 300 240 Balance -579 1250 240 Weight 61.235 kg 61.235 kg Intake: IV 896 900 Sodium Chloride 0.9% 1, 600 900 000 ml @ 75 mls/hr IV . [id number] [facility] Rx#:[id number] Oral 0 650 480 Output: Urine 1450 300 240 Uretheral (Fields) 300 Estimated Blood Loss 25 Other: Voiding Method Urinal Indwelling Catheter Indwelling Catheter Incontinent # Voids 2 2 # Bowel Movements 0 - Constitutional General appearance: Present: mild distress - EENT Eyes: Present: PERRLA Ears: bilateral: normal - Neck Neck: Present: normal ROM - Respiratory Respiratory: bilateral: CTA - Cardiovascular Rhythm: irregularly irregular - Gastrointestinal General gastrointestinal: Present: soft - Integumentary Integumentary: Present: normal - Neurologic Neurologic: Present: CNII-XII intact - Musculoskeletal Musculoskeletal: Present: generalized weakness - Psychiatric Psychiatric: Present: A&O x's 3, appropriate affect, intact judgment & insight - Labs CBC & Chem 7: 12/12/16 19:07 12/12/16 06:58 Labs: Abnormal Lab Results - Last 24 Hours (Table) 12/12/16 Range/Units 19:07 WBC 11.7 H (3.8-10.6) k/uL RBC 3.95 L (4.30-5.90) m/uL Hgb 12.5 L (13.0-17.5) gm/dL MCV 102.7 H (80.0-100.0) fL MCHC 30.9 L (31.0-37.0) g/dL Plt Count 137 L (150-450) k/uL Neutrophils # 8.0 H (1.3-7.7) k/uL Monocytes # 1.1 H (0-1.0) k/uL Assessment and Plan Plan: Assessment Postop repair of left femoral neck fracture Chronic atrial fibrillation History of hypertension Chronic congestive heart failure ejection fraction 35-40% Coronary disease history stent Hyperlipidemia Plan Continue to monitor patient condition stable at this time
[2016-12-13 19:22] VITALS: RESP 16
[2016-12-13] MEDS: SENNOSIDES-DOCUSATE SODIUM 1 EACH TAB PO SCH (21:23)
[2016-12-14] MEDS: HYDROcodone/APAP 5-325MG 1 EACH TAB PO PRN ×2 (04:59→11:35)
[2016-12-14 07:40] LABS: Basophils % (A) 0 %; CH 31.9; CHCM 31.1; Eosinophils % (A) 9 %; HCT 34.4 % (39.0-53.0); HDW 2.24; HGB 10.6 gm/dL (13.0-17.5); Hypochromasia Slight; Luc # (Auto) 0.16; Luc % (Auto) 2; Lymphocytes # (A) 1.6 k/uL (1.0-4.8); Lymphocytes % (A) 15 %; MCH 31.9 pg (25.0-35.0); MCHC 30.9 g/dL (31.0-37.0); MCV 103.3 fL (80.0-100.0); Macrocytosis Slight; Monocytes # (A) 0.7 k/uL (0-1.0); Monocytes % (A) 7 %; Neutrophils # (A) 6.8 k/uL (1.3-7.7); Neutrophils % (A) 67 %; RBC 3.33 m/uL (4.30-5.90); RDW 13.7 % (11.5-15.5); WBC 10.3 k/uL (3.8-10.6); WBC (Perox) 11.07
[2016-12-14] MEDS: MULTIVITAMINS, THERA 1 EACH TAB PO SCH (08:00)
[2016-12-14] MEDS: METOPROLOL TARTRATE 25 MG TAB PO SCH (08:00)
[2016-12-14] MEDS: ASPIRIN 325 MG TAB PO SCH ×2 (08:00→20:01)
[2016-12-14] MEDS: amLODIPine 10 MG TAB PO SCH (08:00)
[2016-12-14] MEDS: ENOXAPARIN 60 MG/0.6 ML SYRINGE SQ SCH ×2 (08:00→20:01)
--- NOTE | 2016-12-14 10:08 | P.PN ---
Subjective Principal diagnosis: Left Hip Fracture Patient is pleasant 78-year-old male seen at bedside this morning. He is postop day 2 from closed reduction internal fixation of a left subcapital impacted femoral neck fracture. He's doing well with no new complaints. He has pain at surgical site as expected. His pain is controlled. He denies numbness or tingling. He denies calf pain, fever, chills, chest pain or shortness of breath. Objective - Vital Signs Vital signs: Vital Signs Temp 97.9 F 12/14/16 07:50 Pulse 97 12/14/16 07:50 Resp 16 12/14/16 07:50 BP 123/75 12/14/16 07:50 Pulse Ox 96 12/14/16 07:50 Intake & Output 12/13/16 12/14/16 12/14/16 18:59 06:59 18:59 Intake Total 480 1000 Output Total 240 620 500 Balance 240 380 -500 Weight 61.235 kg Intake: IV 900 Sodium Chloride 0.9% 1, 900 000 ml @ 75 mls/hr IV . [id number] [facility] Rx#:[id number] Oral 480 100 Output: Urine 240 620 500 Uretheral (Fields) 620 500 Other: Voiding Method Indwelling Catheter Indwelling Catheter # Voids 2 # Bowel Movements 0 - Exam Inspection of the left lower extremity reveals a benign surgical wound. There is no active bleeding or drainage. Neurovascular status intact with motor and sensation throughout the left lower extremity. Calf is soft and nontender. 2+ dorsalis pedis pulse and less than 2 second cap refill is present. - Constitutional General appearance: Present: no acute distress - Psychiatric Psychiatric: Present: A&O x's 3, appropriate affect, intact judgment & insight - Labs CBC & Chem 7: 12/14/16 07:15 12/12/16 06:58 Labs: Abnormal Lab Results - Last 24 Hours (Table) 12/14/16 Range/Units 07:15 RBC 3.33 L (4.30-5.90) m/uL Hgb 10.6 L (13.0-17.5) gm/dL Hct 34.4 L (39.0-53.0) % MCV 103.3 H (80.0-100.0) fL MCHC 30.9 L (31.0-37.0) g/dL Plt Count 146 L (150-450) k/uL Eosinophils # 1.0 H (0-0.7) k/uL Assessment and Plan (1) Fracture of femoral neck, left Narrative/Plan: He'll continue with routine postop orthopedic protocol including pain management , wound care, physical therapy, DVT prophylaxis and medical management. Expect that he'll transfer to extended care facility in the next 1-2 days.. Status: Acute Time with Patient: Less than 30
[2016-12-14] MEDS: LACTATED RINGERS 1,000 ML IV SCH (12:24)
[2016-12-14] MEDS: SODIUM CHLORIDE 0.9% 1,000 ML IV SCH (12:24)
[2016-12-14] MEDS: SENNOSIDES-DOCUSATE SODIUM 1 EACH TAB PO SCH (20:01)
[2016-12-15] MEDS: LACTATED RINGERS 1,000 ML IV SCH (01:52)
[2016-12-15] MEDS: SODIUM CHLORIDE 0.9% 1,000 ML IV SCH (01:52)
[2016-12-15] MEDS: ASPIRIN 325 MG TAB PO SCH (10:26)
[2016-12-15] MEDS: METOPROLOL TARTRATE 25 MG TAB PO SCH (10:26)
[2016-12-15] MEDS: HYDROcodone/APAP 5-325MG 1 EACH TAB PO PRN (10:26)
[2016-12-15] MEDS: ENOXAPARIN 60 MG/0.6 ML SYRINGE SQ SCH (10:26)
--- NOTE | 2016-12-15 11:30 | P.DS ---
Providers Date of admission: 12/11/16 00:24 Expected date of discharge: 12/15/16 Attending physician: Zion Sutton Consults: 12/11/16 00:13 Consult Physician Urgent Consulting Provider: Hever Pace Consult Reason/Comments: Medical clearance for orthopedic surgery Do you want consulting provider notified?: Yes 12/13/16 09:30 Consult Physician Routine Consulting Provider: Salazar Hsu Consult Reason/Comments: Medical Management Do you want consulting provider notified?: Already Contacted Primary care physician: Salazar Hsu - Discharge Diagnosis(es) (1) Fracture of femoral neck, left Current Visit: Yes Status: Acute Priority: Medium Hospital Course: This is a pleasant 86-year-old male who presented with left nondisplaced valgus impacted femoral neck fracture. He was admitted and underwent a closed reduction, percutaneous screw fixation. The patient tolerated the procedure well and did well postoperatively. Patient has been eating without significant difficulty but does not have much of an appetite. He does feel he is ready for discharge. Pain has been well-controlled and he does admit to some left hip pain. Condition on day of discharge stable. Patient will be discharged to rehabilitation facility. Patient was cleared preoperatively for surgery by Dr. Pace. Patient currently denies any nausea, vomiting, fever, or chills. Patient is eating and voiding freely without difficulty. Patient should continue to keep wound, clean, dry, and intact. He may shower in 24 hours without a dressing at that time. He should avoid bathing in a tub. He will remain toe-touch weightbearing on the left lower extremity. Chrystal to remain intact for 10-14 days. Patient given prescriptions for aspirin 325 mg 1 tab twice per day dispense 60, Mcfaddin 5 mg/325 mg 1 tab every 4 hours as needed for pain dispense 90, and Colace 100 mg 1 tab twice per day dispense 60 at discharge. Medicine will complete the med rec prior to discharge. Physical Exam on day of discharge: Postoperative day # 3 Patient is awake, alert, and oriented 3 Vital signs stable Good chest excursion with deep inspiration and expiration Abdomen soft nontender No signs or symptoms of DVT; no calf pain Dressing of the left hip is clean, dry, and intact; no erythema, purulence, or signs of infection Rippey remain intact over the left hip Full range of motion of ankles bilaterally Dorsiflexion, plantarflexion, and extensor hallucis longus positive sustained bilaterally Neurovascularly intact bilateral lower extremities Capillary refill less than 2 seconds bilateral lower extremities Evidence of a large bruise over the left lateral thigh that appears to be healing Procedures: Left Hip closed reduction, percutaneous screw fixation Patient Condition at Discharge: Stable Plan - Discharge Summary New Discharge Prescriptions: New Aspirin 325 mg PO BID #60 tab Docusate [Colace] 100 mg PO BID #60 capsule HYDROcodone/APAP 5-325MG [Mcfaddin 5-325] 1 tab PO Q4HR PRN #90 tab PRN Reason: Pain No Action amLODIPine [Norvasc] 10 mg PO DAILY Simvastatin [Zocor] 40 mg PO DAILY Lisinopril [Prinivil] 10 mg PO DAILY Aspirin 81 mg PO DAILY #30 chew Metoprolol Tartrate [Lopressor] 25 mg PO DAILY Apixaban [Eliquis] 2.5 mg PO DAILY Discharge Medication List Lisinopril [Prinivil] 10 mg PO DAILY 12/20/14 [History] Simvastatin [Zocor] 40 mg PO DAILY 12/20/14 [History] amLODIPine [Norvasc] 10 mg PO DAILY 12/20/14 [History] Aspirin 81 mg PO DAILY #30 chew 01/14/16 [Rx] Apixaban [Eliquis] 2.5 mg PO DAILY 12/10/16 [History] Metoprolol Tartrate [Lopressor] 25 mg PO DAILY 12/10/16 [History] Aspirin 325 mg PO BID #60 tab 12/14/16 [Rx] Docusate [Colace] 100 mg PO BID #60 capsule 12/14/16 [Rx] HYDROcodone/APAP 5-325MG [Mcfaddin 5-325] 1 tab PO Q4HR PRN #90 tab 12/14/16 [Rx] Follow up Appointment(s)/Referral(s): Salazar Hsu MD [Primary Care Provider] - 1-2 days Zion Sutton MD [STAFF PHYSICIAN] - 12/28/16 2:35 pm Activity/Diet/Wound Care/Special Instructions: 1. Take meds as directed 2. Keep wound clean and dry 3. Touchdown weightbearing left lower extremity 4. Follow up with Dr. Sutton in office 5. Keep chrystal intact 10-14 days 6. Do not soak in tub 7. May shower in 24 hours Discharge Disposition: TRANSFER TO SNF/F
[2016-12-15 12:27] VITALS: BP 114/78; PULSE 92; TEMP 97.4
[2016-12-15] MEDS: amLODIPine 10 MG TAB PO SCH (12:27)
--- NOTE | 2016-12-15 16:47 | P.PN ---
Subjective Progress note being dictated for Dr. Mckeon Interval history:This is a 85-year-old gentleman who currently lives in [facility] facility was going to the hospital after sustaining multiple falls in the recent times. Patient was noted to have a traumatic injury to the left orbit laterally. Patient was also noted to have some pain in his pelvis appears that the patient is a left femoral neck fracture Patient is currently on anticoagulation for atrial fibrillation for secondary prevention of strokes At this time patient states that his main complaint is pain in his left lower extremity. Over the last few months patient states that his balance has worsened and hence has had sustained multiple falls ekg do show the patient to be in atrial fibrillation. last ejection fraction is 35-40%. 12/14/16 borderline hypotension, denies lightheadedness dizziness or focal deficits. Good diet intake with no nausea or vomiting. Pain controlled. Afebrile. Denies chest pain, palpitations or increasing shortness of breath. Passing flatus. Objective - Vital Signs Vital signs: Vital Signs Temp 98.2 F 12/14/16 15:32 Pulse 90 12/14/16 15:32 Resp 16 12/14/16 07:50 BP 189/82 12/14/16 15:32 Pulse Ox 95 12/14/16 15:32 Intake & Output 12/14/16 12/14/16 12/15/16 06:59 18:59 06:59 Intake Total 1000 Output Total 620 950 Balance 380 -950 Intake: IV 900 Sodium Chloride 0.9% 1, 900 000 ml @ 75 mls/hr IV . [id number] [facility] Rx#:[id number] Oral 100 Output: Urine 620 950 Uretheral (Fields) 620 500 Other: Voiding Method Indwelling Catheter # Voids 1 - Exam Gen. appearance alert oriented times 3, No acute DIstress NECK: Supple, no JVD Heart irregular, no murmurs rubs or gallops, RESPIRATORY EFFORT : NORMAL LUNGS:diminished breath sounds no rhonchi wheezing or crackles Abdomen soft nontender organomegaly, positive bowel sounds Neuro no focal deficits. - Labs CBC & Chem 7: 12/14/16 07:15 12/12/16 06:58 Labs: Abnormal Lab Results - Last 24 Hours (Table) 12/14/16 Range/Units 07:15 RBC 3.33 L (4.30-5.90) m/uL Hgb 10.6 L (13.0-17.5) gm/dL Hct 34.4 L (39.0-53.0) % MCV 103.3 H (80.0-100.0) fL MCHC 30.9 L (31.0-37.0) g/dL Plt Count 146 L (150-450) k/uL Eosinophils # 1.0 H (0-0.7) k/uL Assessment and Plan Plan: #1 fall causing a left femoral neck fracture status post surgical repair #2 chronic atrial fibrillation #3 history of essential hypertension #4 dyslipidemia 4 lactic acidosis #Dehydration Plan: Continue on current medication regime ,monitoring and symptomatic treatment. Decrease Norvasc to 5 mg daily as patient currently having borderline hypotension. Anticoagulation and pain management as per orthopedics. Discharge planning in progress as per orthopedics tomorrow to subacute rehab. The impression and plan of care has been dictated as directed. : I performed a H&P examination of this patient and discussed the same with the dictator. I agree with the dictator's note. Any additional findings/opinions/ etc. will be noted.
--- NOTE | 2016-12-15 16:52 | P.PN ---
Subjective Progress note being dictated for Dr. Pace Interval history:This is a 85-year-old gentleman who currently lives in [facility] was going to the hospital after sustaining multiple falls in the recent times. Patient was noted to have a traumatic injury to the left orbit laterally. Patient was also noted to have some pain in his pelvis appears that the patient is a left femoral neck fracture Patient is currently on anticoagulation for atrial fibrillation for secondary prevention of strokes At this time patient states that his main complaint is pain in his left lower extremity. Over the last few months patient states that his balance has worsened and hence has had sustained multiple falls ekg do show the patient to be in atrial fibrillation. last ejection fraction is 35-40%. 12/14/16 borderline hypotension, denies lightheadedness dizziness or focal deficits. Good diet intake with no nausea or vomiting. Pain controlled. Afebrile. Denies chest pain, palpitations or increasing shortness of breath. Passing flatus. 12/15/2016. Continues to do well. Patient has been up with walker with physical therapy assist. Tolerated well. Denies lightheadedness dizziness or any focal deficits. Denies chest pain or palpitations. No increased shortness of breath. Objective - Vital Signs Vital signs: Vital Signs Temp 97.4 F L 12/15/16 08:00 Pulse 92 12/15/16 08:00 Resp 16 12/15/16 08:00 BP 114/78 12/15/16 08:00 Pulse Ox 96 12/15/16 08:00 Intake & Output 12/14/16 12/15/16 12/15/16 18:59 06:59 18:59 Intake Total 450 60 Output Total 950 500 Balance -950 -50 60 Intake: Oral 450 60 Output: Urine 950 500 Uretheral (Fields) 500 Other: # Voids 1 3 - Exam Gen. appearance alert oriented times 3, No acute DIstress HEENT: Neck Supple, no JVD, oral mucosa moist. Heart irregular, no murmurs rubs or gallops, RESPIRATORY EFFORT : NORMAL LUNGS:diminished breath sounds no rhonchi wheezing or crackles Abdomen soft nontender organomegaly, positive bowel sounds Neuro no focal deficits. - Labs CBC & Chem 7: 12/14/16 07:15 12/12/16 06:58 Assessment and Plan Plan: #1 fall causing a left femoral neck fracture status post surgical repair #2 chronic atrial fibrillation #3 history of essential hypertension #4 dyslipidemia 4 lactic acidosis #Dehydration Plan: Continue on current medication regime ,monitoring and symptomatic treatment. Discharge planning in progress for today to [facility] as per orthopedics. Anticoagulation and pain management as per orthopedics. CBC, BMP in 3 days. The impression and plan of care has been dictated as directed. : I performed a H&P examination of this patient and discussed the same with the dictator. I agree with the dictator's note. Any additional findings/opinions/ etc. will be noted.
== END 2016-12-15 12:25 | DRG 481 ==
LOC: EC 20:54 → 3SUR 12-11 00:24
PROVIDERS: ADMIT Orthopaedic Surgery Sports Medicine; ATTEND Orthopaedic Surgery Sports Medicine
PROC: 0QS734Z Reposition Left Upper Femur with Internal Fixation Device, Percutaneous Approach (ICD-10-PCS; principal; 2016-12-12 15:00)
DX: S72.012A Unspecified intracapsular fracture of left femur, initial encounter for closed fracture (principal); E87.2 Acidosis; I95.9 Hypotension, unspecified; I11.0 Hypertensive heart disease with heart failure; I50.9 Heart failure, unspecified; F03.90 Unspecified dementia, unspecified severity, without behavioral disturbance, psychotic disturbance, mood disturbance, and anxiety; E87.5 Hyperkalemia; J44.9 Chronic obstructive pulmonary disease, unspecified; I48.2 Chronic atrial fibrillation; E86.0 Dehydration; E78.5 Hyperlipidemia, unspecified; K21.9 Gastro-esophageal reflux disease without esophagitis; R29.6 Repeated falls; N40.0 Benign prostatic hyperplasia without lower urinary tract symptoms; S70.12XA Contusion of left thigh, initial encounter; I25.10 Atherosclerotic heart disease of native coronary artery without angina pectoris; K59.00 Constipation, unspecified; M48.56XS Collapsed vertebra, not elsewhere classified, lumbar region, sequela of fracture; W01.0XXA Fall on same level from slipping, tripping and stumbling without subsequent striking against object, initial encounter; Z90.2 Acquired absence of lung [part of]; Z86.79 Personal history of other diseases of the circulatory system; I25.2 Old myocardial infarction; Z87.01 Personal history of pneumonia (recurrent); Z86.73 Personal history of transient ischemic attack (TIA), and cerebral infarction without residual deficits; Z95.5 Presence of coronary angioplasty implant and graft; Z98.41 Cataract extraction status, right eye; Z86.69 Personal history of other diseases of the nervous system and sense organs; Z86.010 Personal history of colon polyps; Z87.891 Personal history of nicotine dependence; Z82.49 Family history of ischemic heart disease and other diseases of the circulatory system; Z79.899 Other long term (current) drug therapy; Z79.01 Long term (current) use of anticoagulants; Z79.82 Long term (current) use of aspirin; Z88.8 Allergy status to other drugs, medicaments and biological substances; Y92.018 Other place in single-family (private) house as the place of occurrence of the external cause
CPT/HCPCS: 36415; 70450; 71010; 72125; 72170; 73501; 73502; 80053; 81003; 82550; 82553; 83605; 83735; 84484; 85025; 85610; 85730; 86850; 86900; 86901; 90471; 90715; 93005; 96361; 96374; 99291

== ENCOUNTER 2017-01-18 19:38 | Emergency (ER) | payer MEDICARE ==
--- NOTE | 2017-01-18 20:23 | CT ---
EXAMINATION TYPE: CT brain adrian piña DATE OF EXAM: 01/18/2017 COMPARISON: 12/10/2016 HISTORY: Fall today with posterior head injury. CT DLP: 1285.80 mGycm Automated exposure control for dose reduction was used. TECHNIQUE: CT scan of the head and cervical spine are performed without contrast. FINDINGS: There is diffuse cerebral cortical atrophy. There is no mass effect nor midline shift. Th ere is no sign of intracranial hemorrhage. There is patchy white matter hypodensity in the periventri cular white matter. Cervical vertebra have normal alignment. There is however 3 mm anterior subluxation of C7 in relation to T1 consistent with degenerative phenomenon. There is narrowing of disc spaces throughout the cerv ical spine with spurring of the endplates. There is multilevel hypertrophic facet arthropathy. The sk ull base is intact. IMPRESSION: Cerebral atrophy and chronic small vessel ischemia. No acute intracranial abnormality. No change. Multilevel spondylosis in the cervical spine. No fracture. No change.
--- NOTE | 2017-01-18 20:24 | XR ---
EXAMINATION TYPE: XR chest 1V portable DATE OF EXAM: 01/18/2017 COMPARISON: 12/10/2016 HISTORY: Fall. Chest pain TECHNIQUE: Single frontal view of the chest is obtained. FINDINGS: Thoracic aorta is atheromatous. There is aortic stent noted. Lungs are clear without evide nce of heart failure. There is slight blunting of right costophrenic angle. There is no sign of a pne umothorax. There are chest leads. IMPRESSION: Pleural diaphragmatic scarring at the right lung base. Cardiomegaly. No acute lung disea se. No change.
--- NOTE | 2017-01-18 20:26 | XR ---
EXAMINATION TYPE: XR pelvis AP view DATE OF EXAM: 01/18/2017 COMPARISON: 12/10/2016 HISTORY: Pain after falling TECHNIQUE: Single view FINDINGS: The pelvic ring is intact. There are pins fixing the left femoral neck. Sacroiliac joints a re intact. I see no displaced fracture. There is atherosclerotic vascular calcification. IMPRESSION: There are left hip pinning screws that appear new compared to last exam. No acute bony ab normality seen.
--- NOTE | 2017-01-18 20:38 | ED ---
General Adult HPI - General Chief complaint: Fall Stated complaint: Fall Time Seen by Provider: 01/18/17 19:41 Source: patient, EMS, RN notes reviewed Mode of arrival: EMS Limitations: no limitations - History of Present Illness Initial comments: 86 yo male with history of A. fib on Eliquis presents status post fall. Patient resides at a local correction. He fell this evening in the dining room. States he tripped. Denies chest pain or palpitations prior fall. There was head injury on the occipital region. No loss of consciousness. Patient denies pain complaints. Denies headache. Denies neck pain. Denies any chest pain. Patient does state he feels small wall pain in his groin believes he may have twisted wrong when he fell. Patient was ambulatory. Patient has no other complaints at the time of my evaluation. - Related Data Home Medications Medication Instructions Recorded Confirmed Lisinopril [Prinivil] 10 mg PO DAILY@0800 12/20/14 01/18/17 Simvastatin [Zocor] 40 mg PO HS 12/20/14 01/18/17 Apixaban [Eliquis] 2.5 mg PO DAILY@0800 12/10/16 01/18/17 Metoprolol Tartrate [Lopressor] 25 mg PO DAILY@0800 12/10/16 01/18/17 Albuterol Nebulized [Ventolin 2.5 mg INHALATION RT-QID 01/18/17 01/18/17 Nebulized] Bisacodyl [Dulcolax] 10 mg RECTAL DAILY PRN 01/18/17 01/18/17 Ferrous Sulfate [Feosol] 325 mg PO DAILY@1700 01/18/17 01/18/17 HYDROcodone/APAP 5-325MG [Chelsea 1 - 2 tab PO Q4HR PRN 01/18/17 01/18/17 5-325] Lactose-Reduced Food [Ensure Plus] 1 can PO TID@0800,1200,1700 01/18/17 01/18/17 Magnesium Hydroxide [Milk of 2,400 mg PO ONCE PRN 01/18/17 01/18/17 Magnesia] Na Phos,M-B/Na Phos,Di-Ba [Fleet 133 ml RECTAL ONCE PRN 01/18/17 01/18/17 Adult] Previous Rx's Medication Instructions Recorded Docusate [Colace] 100 mg PO BID #60 capsule 12/14/16 Allergies Allergy/AdvReac Type Severity Reaction Status Date / Time vitamin B AdvReac Rash/Hives Uncoded 01/18/17 19:49 Review of Systems ROS Statement: Those systems with pertinent positive or pertinent negative responses have been documented in the HPI. ROS Other: All systems not noted in ROS Statement are negative. Past Medical History Past Medical History: Atrial Fibrillation, Asthma, Heart Failure, COPD, CVA/TIA , Dementia, GERD/Reflux, Hyperlipidemia, Hypertension, Myocardial Infarction ([place] ), Osteoarthritis (OA), Pneumonia, Prostate Disorder Additional Past Medical History / Comment(s): Falls, abdominal aortic aneurysm with sleeve, R lobectomy (04/23) for benign mass, TIA, chronic CHF, lumbar spine compression fracture, BPH, sinus problems, constipation with last BM 2-3 days ago, R leg fracture as a child. Last Myocardial Infarction Date:: 1987 about History of Any Multi-Drug Resistant Organisms: None Reported Past Surgical History: Heart Catheterization With Stent Additional Past Surgical History / Comment(s): R lung lobectomy (04/23), abdominal aortic aneurysm surgery x 2 and has a sleeve, PCI with stent, colonoscopies with benign polypectomies, R eye cataract removal. Past Anesthesia/Blood Transfusion Reactions: No Reported Reaction Date of Last Stent Placement:: 1987? Past Psychological History: No Psychological Hx Reported Smoking Status: Former smoker - Past Family History Father History Unknown: Yes Family Medical History: Congestive Heart Failure (CHF), Myocardial Infarction ( [place]) Brother(s) History Unknown: Yes Family Medical History: Congestive Heart Failure (CHF), Myocardial Infarction ( [place]) General Exam Limitations: no limitations General appearance: alert, in no apparent distress Head exam: Present: normocephalic, other (3 cm x 2 cm hematoma and abrasion on the occiput, the laceration) Eye exam: Present: normal appearance, PERRL ENT exam: Present: normal exam Neck exam: Present: normal inspection, full ROM. Absent: tenderness Respiratory exam: Present: normal lung sounds bilaterally. Absent: respiratory distress Cardiovascular Exam: Present: regular rate, normal rhythm GI/Abdominal exam: Present: soft. Absent: distended, tenderness Extremities exam: Present: normal inspection, normal capillary refill, other ( No tenderness to palpation, good range of motion at the hips bilaterally). Absent: tenderness, pedal edema Neurological exam: Present: alert. Absent: motor sensory deficit (Patient is alert and oriented 2, which according to medical record is his baseline) Psychiatric exam: Present: normal affect, normal mood Skin exam: Present: warm, dry. Absent: cyanosis, diaphoretic Course Vital Signs 01/18/17 19:46 Temperature 97.1 F L Pulse Rate 84 Respiratory 18 Rate Blood Pressure 118/75 O2 Sat by Pulse 100 Oximetry Medical Decision Making - Medical Decision Making 86 yo male presents for evaluation status post fall. Patient resides at a local correction. He fell while leaving the dining room this evening. Struck the back of his head. No loss of consciousness. The patient is on Eliquis for atrial fibrillation. There is hematoma and abrasion on the occiput. Neurologic exam is nonfocal. Head CT is obtained, negative for intracranial hemorrhage. CT the C-spine is negative for fracture subluxation. Chest x-ray shows no acute process. Pelvic x-ray is stable, no fracture or dislocation. Disposition Clinical Impression: Fall, Closed head injury Disposition: HOME SELF-CARE Condition: Good Instructions: Fall Prevention for Older Adults (ED), Abrasion (ED), Concussion (ED) Referrals: Petros Colbert DO [Primary Care Provider] - 1-2 days Time of Disposition: 20:42
[2017-01-18] MEDS ORDERED: DIPH,PERTUS(ACELL)TETVAC-LF 0.5 ML VIAL IM ONE (21:09)
[2017-01-18 21:31] VITALS: BP 130/83; PULSE 100; RESP 20; TEMP 98.7
== END 2017-01-18 21:32 | disposition home or self-care (01) ==
LOC: EC 19:38
DX: S00.93XA Contusion of unspecified part of head, initial encounter (principal); Z23 Encounter for immunization; I48.91 Unspecified atrial fibrillation; I11.0 Hypertensive heart disease with heart failure; I50.9 Heart failure, unspecified; J44.9 Chronic obstructive pulmonary disease, unspecified; K21.9 Gastro-esophageal reflux disease without esophagitis; E78.5 Hyperlipidemia, unspecified; I25.2 Old myocardial infarction; M19.90 Unspecified osteoarthritis, unspecified site; Z87.891 Personal history of nicotine dependence; Z86.73 Personal history of transient ischemic attack (TIA), and cerebral infarction without residual deficits; Z79.01 Long term (current) use of anticoagulants; Z79.899 Other long term (current) drug therapy; Z88.8 Allergy status to other drugs, medicaments and biological substances; W01.0XXA Fall on same level from slipping, tripping and stumbling without subsequent striking against object, initial encounter
CPT/HCPCS: 70450; 71010; 72125; 72170; 90471; 90715; 99284